=== PATIENT | female | born 1990 | race Hispanic/Latino ===

== ENCOUNTER 2021-09-11 11:33 | Outpatient (CLI) | payer OTHER ==
[2021-09-11 22:04] LABS: SARS-CoV-2 PCR by NAA Not Detected (NotDetected)
== END 2021-09-11 11:34 | disposition home or self-care (01) ==
LOC: CSHLAB 11:33
PROVIDERS: ATTEND Surgery
DX: Z20.822 Contact with and (suspected) exposure to COVID-19 (principal); K80.50 Calculus of bile duct without cholangitis or cholecystitis without obstruction
CPT/HCPCS: U0003; U0005